=== PATIENT | female | born 1985 | race Caucasian/White ===

== ENCOUNTER 2025-02-18 15:16 | Emergency (ER) | payer OTHER ==
[~2025-02-18] VITALS: Ht 160 cm; Wt 81.6 kg
[2025-02-18 15:18] VITALS: BP 141/90; O2SAT 95
[2025-02-18 15:45] VITALS: PULSE 136; RESP 20; O2SAT 99
== END 2025-02-18 19:08 | disposition left against medical advice (07) ==
LOC: ER 15:16
DX: R07.9 Chest pain, unspecified (principal); Z53.21 Procedure and treatment not carried out due to patient leaving prior to being seen by health care provider